=== PATIENT | female | born 1975 | race Caucasian/White ===

== ENCOUNTER 2019-04-26 07:34 | Emergency (ER) | payer BC ==
[~2019-04-26] VITALS: Ht 170.2 cm; Wt 104.5 kg
[~2019-04-26 07:34] MED LIST: ALBUTEROL0.09 MG/A1 IH; ALDOMET 250MG250 MG PO; AMOXICILLIN 8751 TAB PO; CEFTIN500 MG PO; FLEXERIL 1010 MG/TAB PO; LOPRESSOR 225 MG/TAB PO; LORTAB 5/500 501 TAB PO; MEDROL 4MG DOSPA4 MG PO; NO HOME MEDICATIONS; PERCOCET 325 MG1 TA2 PO; PRENATAL VITAMI1 TA5 PO; PREVACID 30MG30 M1; REGLAN 10MG10 MG/TAB PO; TRAMADOL; ULTRAM50 MG PO; ZOFRAN 4MG T4 MG/TAB PO
[2019-04-26 07:43] VITALS: TEMP 97.6
[2019-04-26] MEDS ORDERED: CEPHALEXIN500 M1 PO (08:09)
[2019-04-26] MEDS ORDERED: DOXYCYCLINE 10100 MG PO (08:09)
[2019-04-26] MEDS ORDERED: DITROPAN XL 5MG5 M1 PO (08:24)
[2019-04-26] MEDS ORDERED: REGLAN 5MG T5 MG/TAB PO (08:25)
[2019-04-26 08:29] LABS: STREP SCREEN NEGATIVE
[2019-04-26 08:30] VITALS: BP 125/78; PULSE 70
== END 2019-04-26 08:32 | disposition home or self-care (01) ==
LOC: COL.ER 07:34
PROVIDERS: Emergency Medicine
DX: L03.221 Cellulitis of neck (principal)

== ENCOUNTER 2020-01-11 20:10 | Emergency (ER) | payer BC ==
[~2020-01-11] VITALS: Ht 167.6 cm; Wt 113.6 kg
[~2020-01-11 20:10] MED LIST changes: +CEPHALEXIN500 M1 PO; +DITROPAN XL 5MG5 M1 PO; +DOXYCYCLINE 10100 MG PO; +REGLAN 5MG T5 MG/TAB PO
[2020-01-11 20:12] VITALS: TEMP 98.3
[2020-01-11 21:25] LABS: HEMATOCRIT 44.8 % (37.0-47.0); HEMOGLOBIN 15.2 g/dl (12.5-16.0); MEAN CELL VOLUME 87 fl (80.0-100.0); MEAN CORPUSCULAR HEMOGLOBIN 29 pg (27.0-31.0); MEAN CORPUSCULAR HGB CONC 34 g/dl (33.0-37.0); MEAN PLATELET VOLUME 9.6 fl (7.4-10.4); PLATELET COUNT 232 K/mm3 (130-400); RED BLOOD COUNT 5.18 M/mm3 (4.10-5.30); REDCELL DISTRIBUTION WIDTH-CV 13.3 % (11.5-14.5)
[2020-01-11 22:03] LABS: BAND 6 % (0-10); EOSINOPHIL 1 % (0-4); LYMPHOCYTE 42 % (20.0-51.0); NEUTROPHILS 41 % (42.0-75.2); PLATELET ESTIMATE NORMAL (NORMAL)
[2020-01-11 22:06] LABS: ALBUMIN 3.9 gm/dL (3.5-5.0); BILIRUBIN,TOTAL 0.8 mg/dL (0.0-1.0); CALCIUM 8.8 mg/dL (8.4-10.2); CREATININE, serum 0.74 (0.52-1.25); POTASSIUM 4.5 mmol/L (3.4-5.0); TOTAL PROTEIN 7.4 gm/dL (6.4-8.2)
[2020-01-11 23:05] LABS: COLLECTION METHOD CLEAN CATCH
[2020-01-11 23:14] LABS: MUCOUS Present /lpf; PH 6 (5-8); SQUAMOUS EPITHELIAL 0-2 /hpf; URINE APPEARANCE Clear; URINE BACTERIA None Seen /hpf; URINE BILIRUBIN Negative (NEGATIVE); URINE BLOOD 1+ (NEGATIVE); URINE COLOR Yellow; URINE GLUCOSE Negative (NEGATIVE); URINE KETONE Negative (NEGATIVE); URINE LEUKOCYTE ESTERASE Negative (NEGATIVE); URINE NITRATE Negative (NEGATIVE); URINE PROTEIN(semi-quant) Negative (NEGATIVE); URINE RBC 0-2 /hpf; URINE UROBILINOGEN Negative (NEGATIVE)
[2020-01-12 00:10] VITALS: BP 132/75; PULSE 82
== END 2020-01-12 00:12 | disposition home or self-care (01) ==
LOC: COL.ER 20:10
PROVIDERS: Family Medicine
DX: R51 Headache (principal); E86.0 Dehydration
CPT/HCPCS: J3010; J7030; J7120

== ENCOUNTER 2020-01-16 13:46 | Emergency (ER) | payer BC ==
[~2020-01-16] VITALS: Ht 167.6 cm; Wt 115.0 kg
[2020-01-16] MEDS ORDERED: NEURONTIN100 MG/CAP PO (14:18)
[2020-01-16] MEDS ORDERED: PERCOCET 325 MG1 TA2 PO (14:18)
[2020-01-16] MEDS ORDERED: AMOXICILLIN 50500 MG PO (14:18)
[2020-01-16] MEDS ORDERED: PREVACID 30MG30 M1 PO (14:19)
[2020-01-16] MEDS ORDERED: ULTRAM 50MG TAB50 MG PO (14:19)
[2020-01-16] MEDS ORDERED: SKELAXIN 800MG800 MG PO (14:19)
[2020-01-16] MEDS ORDERED: MOBIC15 MG PO (14:19)
[2020-01-16] MEDS ORDERED: ZYRTEC 10MG10 MG PO (14:20)
[2020-01-16 15:40] LABS: HEMATOCRIT 46.9 % (37.0-47.0); HEMOGLOBIN 15.6 g/dl (12.5-16.0); MEAN CELL VOLUME 88 fl (80.0-100.0); MEAN CORPUSCULAR HEMOGLOBIN 29 pg (27.0-31.0); MEAN CORPUSCULAR HGB CONC 33 g/dl (33.0-37.0); MEAN PLATELET VOLUME 9.4 fl (7.4-10.4); PLATELET COUNT 190 K/mm3 (130-400); RED BLOOD COUNT 5.35 M/mm3 (4.10-5.30); REDCELL DISTRIBUTION WIDTH-CV 13.2 % (11.5-14.5)
[2020-01-16 15:52] LABS: ALBUMIN 3.9 gm/dL (3.5-5.0); BILIRUBIN,TOTAL 1.1 mg/dL (0.0-1.0); C-REACTIVE PROTEIN 3.5 mg/dL (0.0-0.9); CALCIUM 8.6 mg/dL (8.4-10.2); CREATININE, serum 0.86 (0.52-1.25); POTASSIUM 3.9 mmol/L (3.4-5.0); TOTAL PROTEIN 7.7 gm/dL (6.4-8.2)
[2020-01-16 16:17] LABS: LYMPHOCYTE 35 % (20.0-51.0); METAMYELOCYTE 1 % (0-0); NEUTROPHILS 59 % (42.0-75.2)
[2020-01-16 16:19] LABS: PLATELET ESTIMATE NORMAL (NORMAL)
[2020-01-16 16:30] LABS: MONOSCREEN NEGATIVE
[2020-01-16 16:33] LABS: COLLECTION METHOD CLEAN CATCH
[2020-01-16 16:45] LABS: MUCOUS Present /lpf; PH 5 (5-8); SQUAMOUS EPITHELIAL 0-2 /hpf; URINE APPEARANCE Hazy; URINE BACTERIA Rare /hpf; URINE BILIRUBIN Negative (NEGATIVE); URINE BLOOD 1+ (NEGATIVE); URINE COLOR Amber; URINE GLUCOSE Negative (NEGATIVE); URINE KETONE 1+ (NEGATIVE); URINE LEUKOCYTE ESTERASE Negative (NEGATIVE); URINE NITRATE Negative (NEGATIVE); URINE PROTEIN(semi-quant) 1+ (NEGATIVE)
[2020-01-16 18:03] LABS: GLUCOSE,CSF 50 mg/dL (40-70); TOTAL PROTEIN,CSF 49 mg/dL (15-45)
[2020-01-16 18:36] LABS: CSF APPEARANCE CLEAR; CSF COLOR COLORLESS; CSF RBC 91 /mm3 (0-0)
[2020-01-16 18:40] LABS: CSF APPEARANCE CLEAR; CSF COLOR COLORLESS; CSF RBC 1 /mm3 (0-0)
[2020-01-16 19:01] LABS: CSF MONONUCLEAR 0 % (70-100); CSF POLYMORPHONUCLEAR 0 % (0-6)
[2020-01-16] MEDS ORDERED: FIORICET 325 MG1 TA1 PO ×2 (19:23→19:36)
[2020-01-16] MEDS ORDERED: PHENERGAN 25 TA25 MG PO (19:23)
[2020-01-16 19:32] LABS: CSF MONONUCLEAR 75 % (70-100); CSF POLYMORPHONUCLEAR 25 % (0-6)
[2020-01-16 19:46] VITALS: BP 138/77; PULSE 88
[2020-01-17 09:05] LABS: PATHOLOGY DIFF REVIEW OK
== END 2020-01-16 19:49 | disposition home or self-care (01) ==
LOC: COL.ER 13:46
PROVIDERS: Emergency Medicine
DX: B34.9 Viral infection, unspecified (principal); M51.35 Other intervertebral disc degeneration, thoracolumbar region; Z90.49 Acquired absence of other specified parts of digestive tract; Z90.710 Acquired absence of both cervix and uterus; Z79.899 Other long term (current) drug therapy
CPT/HCPCS: J0780; J1170; J1885; J2060; J7030

== ENCOUNTER 2020-02-01 04:26 | Inpatient (IN) | payer BC ==
[~2020-02-01] VITALS: Ht 167.6 cm; Wt 120.9 kg
[~2020-02-01 04:26] MED LIST changes: +AMOXICILLIN 50500 MG PO; +FIORICET 325 MG1 TA1 PO; +MOBIC15 MG PO; +NEURONTIN100 MG/CAP PO; +PHENERGAN 25 TA25 MG PO; +PREVACID 30MG30 M1 PO; +SKELAXIN 800MG800 MG PO; +ULTRAM 50MG TAB50 MG PO; +ZYRTEC 10MG10 MG PO
[2020-02-01 05:32] LABS: HEMATOCRIT 41.8 % (37.0-47.0); HEMOGLOBIN 13.6 g/dl (12.5-16.0); MEAN CELL VOLUME 89 fl (80.0-100.0); MEAN CORPUSCULAR HEMOGLOBIN 29 pg (27.0-31.0); MEAN CORPUSCULAR HGB CONC 33 g/dl (33.0-37.0); PLATELET COUNT 242 K/mm3 (130-400); RED BLOOD COUNT 4.69 M/mm3 (4.10-5.30); REDCELL DISTRIBUTION WIDTH-CV 15.1 % (11.5-14.5)
[2020-02-01 05:35] LABS: INR 1.1 (0.8-3.0); PROTHROMBIN TIME 12.4 SECONDS (9.7-12.8)
[2020-02-01 05:42] LABS: ALBUMIN 3.4 gm/dL (3.5-5.0); BILIRUBIN,TOTAL 0.6 mg/dL (0.0-1.0); CALCIUM 8.3 mg/dL (8.4-10.2); CREATININE, serum 0.81 (0.52-1.25); POTASSIUM 3.8 mmol/L (3.4-5.0); TOTAL PROTEIN 7.1 gm/dL (6.4-8.2)
[2020-02-01 05:50] LABS: BAND 10 % (0-10); EOSINOPHIL 2 % (0-4); NEUTROPHILS 26 % (42.0-75.2); PLATELET ESTIMATE NORMAL (NORMAL)
[2020-02-01 05:51] LABS: LYMPHOCYTE 59 % (20.0-51.0)
[2020-02-01 05:55] LABS: TROPONIN-I 0.037 ng/mL (0.000-0.035)
[2020-02-01] MEDS ORDERED: LASIX 40MG TABL40 MG PO (06:59)
[2020-02-01 08:37] LABS: PATHOLOGY DIFF REVIEW OK
[2020-02-01 09:33] VITALS: BP 130/8; PULSE 88; TEMP 98.6
[2020-02-01 12:02] VITALS: BP 125/80; PULSE 84; TEMP 98.6
--- NOTE | 2020-02-01 12:24 | NUR ---
Patient has been stable since arriving to the floor. States that she feels better than she did earlier this morning. IV sites are CD&I. Heparin dripped has been paused per protocol to hold for 2 hours hepxa scheduled and ordered to be drawn at 1400. Pt denies chest pain and SOB at this time. Medications were reviewed. Pt ambulated to restroom via standby and did very well, gait is steady, no weakness. No other needs were expressed at this time. Continuing to monior. Call light is in reach.
[2020-02-01 15:41] VITALS: BP 136/79; PULSE 86; TEMP 98.4
--- NOTE | 2020-02-01 19:02 | NUR ---
PATIENT HAS HAD NO CHEST PAIN OR DISCOFORT SINCE ARRIVING TO THE FLOOR. HEPARIN DRIP IS CURRENTLY RUNNING AT 12 MLS/HR. PT STATES SHE IS TIRED SHE DID NOT SLEEP WELL AND HAS BEEN NAPPING COMFORTABLY. NO OTHER NEEDS AT THIS TIME. CALL LIGHT IS IN REACH.
[2020-02-01 19:33] VITALS: BP 137/72; PULSE 84; TEMP 97.8
--- NOTE | 2020-02-01 20:00 | NUR ---
Received report from MT Yu. a/ox4. Denies any pain or discomfort. Heparin gtt infusing at 18ml/hr at this time to LH, intact. INT to RAC intact, flushed, dressing CDI. Tele monitor in place. meds administered. needs met at this time. call light within reach.
[2020-02-01 21:17] LABS: COLLECTION METHOD CLEAN CATCH
[2020-02-01 21:28] LABS: PH 6 (5-8); SQUAMOUS EPITHELIAL 0-2 /hpf; URINE APPEARANCE Clear; URINE BACTERIA Rare /hpf; URINE BILIRUBIN Negative (NEGATIVE); URINE BLOOD 1+ (NEGATIVE); URINE COLOR Yellow; URINE GLUCOSE Negative (NEGATIVE); URINE KETONE Negative (NEGATIVE); URINE LEUKOCYTE ESTERASE Negative (NEGATIVE); URINE NITRATE Negative (NEGATIVE); URINE PROTEIN(semi-quant) Negative (NEGATIVE); URINE RBC 0-2 /hpf; URINE UROBILINOGEN Negative (NEGATIVE)
[2020-02-01 23:16] VITALS: BP 127/65; PULSE 83; TEMP 98.4
[2020-02-02 03:39] VITALS: BP 121/67; PULSE 87; TEMP 98.4
--- NOTE | 2020-02-02 05:21 | NUR ---
Pt made no complaints. Meds given. Call light within reach.
[2020-02-02 06:23] LABS: HEMATOCRIT 37.7 % (37.0-47.0); HEMOGLOBIN 12.4 g/dl (12.5-16.0); MEAN CELL VOLUME 89 fl (80.0-100.0); MEAN CORPUSCULAR HEMOGLOBIN 29 pg (27.0-31.0); MEAN CORPUSCULAR HGB CONC 33 g/dl (33.0-37.0); MEAN PLATELET VOLUME 9.1 fl (7.4-10.4); PLATELET COUNT 234 K/mm3 (130-400); RED BLOOD COUNT 4.26 M/mm3 (4.10-5.30); REDCELL DISTRIBUTION WIDTH-CV 15.1 % (11.5-14.5)
[2020-02-02 06:38] LABS: BILIRUBIN,TOTAL 0.6 mg/dL (0.0-1.0); CALCIUM 7.9 mg/dL (8.4-10.2); CREATININE, serum 0.78 (0.52-1.25); POTASSIUM 3.8 mmol/L (3.4-5.0); TOTAL PROTEIN 6.3 gm/dL (6.4-8.2)
[2020-02-02 06:46] LABS: TROPONIN-I 0.035 ng/mL (0.000-0.035)
--- NOTE | 2020-02-02 07:25 | NUR ---
Report given to MT Kelley and MT Denton.
[2020-02-02 07:27] VITALS: BP 137/83; PULSE 89; TEMP 98.4
[2020-02-02 07:34] LABS: BAND 12 % (0-10); EOSINOPHIL 5 % (0-4); METAMYELOCYTE 1 % (0-0); NEUTROPHILS 26 % (42.0-75.2); PLATELET ESTIMATE DECREASED (NORMAL)
[2020-02-02 07:35] LABS: ANISOCYTOSIS 1+; LYMPHOCYTE 50 % (20.0-51.0)
--- NOTE | 2020-02-02 08:16 | NUR ---
Pt resting in chair upon entering room. Assessment completed and documented. Generalized mild edema noted. Pt states "hands are more swollen than usual." No other significant findings noted. IV to L hand infusing heparin at 15 ml/hr, site intact. IV to R AC flushes easily, site intact. Pt reports pain 5/10 throughout head and neck along with mild nausea. Pt reports concerns about frequent headaches, requests medication to help. Pt also reports concerns with gabapentin dosing. Will follow up with provider on medications and continue to monitor patient. Call light within reach.
[2020-02-02] MEDS ORDERED: ELIQUIS 5MG PO (09:20)
--- NOTE | 2020-02-02 09:57 | NUR ---
GEORGETTE and linoleum tile layer met with the patient to discuss discharge plan. The patient lives in [place] with her , Magdiel (ph#[phone]), and two children. She reports independence with ADLs and does not have any DME. The patient's PCP is Dr. Mayra Coppola and she receives her medications at [facility] ([place]). She reports no difficulties obtaining her meds. The patient does not have advanced directives, but she was interested in obtaining a form for DPOA-HC. GEORGETTE provided. The patient plans to return home with her family upon discharge. No additional needs at this time.
--- NOTE | 2020-02-02 11:24 | NUR ---
DISCHARGE INSTRUCTIONS DISCUSSED WITH PATIENT, ALL QUESTIONS ANSWERED. IV TO R AC AND IV TO L HAND REMOVED. PT WHEELED OUT OF FACILITY TO FAMILY CAR.
--- NOTE | 2020-02-02 11:34 | NUR ---
First visit from the product support representative. No needs right now.
== END 2020-02-02 11:15 | disposition home or self-care (01) | DRG 176 ==
LOC: COL.ER 04:26 → MEDICAL 07:23
PROVIDERS: Emergency Medicine; Physician Assistant; ADMIT Hospitalist
DX: I26.99 Other pulmonary embolism without acute cor pulmonale (principal); R79.89 Other specified abnormal findings of blood chemistry; K76.0 Fatty (change of) liver, not elsewhere classified; R16.1 Splenomegaly, not elsewhere classified; G43.909 Migraine, unspecified, not intractable, without status migrainosus; K21.9 Gastro-esophageal reflux disease without esophagitis; M19.90 Unspecified osteoarthritis, unspecified site; J45.909 Unspecified asthma, uncomplicated; M51.36 Other intervertebral disc degeneration, lumbar region; E66.9 Obesity, unspecified; Z88.1 Allergy status to other antibiotic agents
CPT/HCPCS: 99222-AI; 99239; J1644; Q9967

== ENCOUNTER 2020-08-31 17:01 | Emergency (ER) | payer BC ==
[~2020-08-31] VITALS: Ht 167.6 cm; Wt 122.7 kg
[~2020-08-31 17:01] MED LIST changes: +ELIQUIS 5MG PO; +LASIX 40MG TABL40 MG PO
[2020-08-31 17:08] VITALS: TEMP 98.6
[2020-08-31 17:36] LABS: BASO # 0.1 (0.0-0.2); EOS # 0.3 (0.0-0.7); EOS % 3.2 % (0-4.0); GRAN # 5.4 (1.4-6.5); GRAN % 54.3 % (42.2-75.2); HEMATOCRIT 42.9 % (37.0-47.0); HEMOGLOBIN 14.3 g/dl (12.5-16.0); LYMPH # 3.4 (1.2-3.4); MEAN CELL VOLUME 87 fl (80.0-100.0); MEAN CORPUSCULAR HEMOGLOBIN 29 pg (27.0-31.0); MEAN CORPUSCULAR HGB CONC 33 g/dl (33.0-37.0); MEAN PLATELET VOLUME 9.3 fl (7.4-10.4); MONO # 0.7 (0.1-0.6); MONO % 7.1 % (1.7-9.3); PLATELET COUNT 328 K/mm3 (130-400); RED BLOOD COUNT 4.94 M/mm3 (4.10-5.30); REDCELL DISTRIBUTION WIDTH-CV 13.2 % (11.5-14.5)
[2020-08-31 17:47] LABS: ALANINE AMINOTRANSFERASE 21 U/L (4-34); ALBUMIN 4.1 gm/dL (3.5-5.0); ALKALINE PHOSPHATASE 97 U/L (50-136); ANION GAP 7 mmol/L (7-16); AST,SGOT 30 U/L (15-37); BILIRUBIN,TOTAL 0.4 mg/dL (0.0-1.0); BLOOD UREA NITROGEN 14 mg/dL (7-17); CALCIUM 8.6 mg/dL (8.4-10.2); CARBON DIOXIDE 28 mmol/L (22-30); CHLORIDE 105 mmol/L (98-107); CREATININE, serum 0.67 (0.52-1.25); GLUCOSE 110 mg/dL (74-106); POTASSIUM 4.3 mmol/L (3.4-5.0); SODIUM 140 mmol/L (137-145); TOTAL PROTEIN 7.6 gm/dL (6.4-8.2)
[2020-08-31 18:13] LABS: TROPONIN-I < 0.012 ng/mL (0.000-0.035)
[2020-08-31 20:58] VITALS: BP 150/92; PULSE 94
== END 2020-08-31 21:05 | disposition home or self-care (01) ==
LOC: COL.ER 17:01
PROVIDERS: Nurse Practitioner Primary Care
DX: R07.89 Other chest pain (principal); R51.9 Headache, unspecified; K21.9 Gastro-esophageal reflux disease without esophagitis; I25.2 Old myocardial infarction; Z86.711 Personal history of pulmonary embolism; Z90.49 Acquired absence of other specified parts of digestive tract; Z90.710 Acquired absence of both cervix and uterus; Z86.16 Personal history of COVID-19; Z88.1 Allergy status to other antibiotic agents; Z88.5 Allergy status to narcotic agent; Z88.8 Allergy status to other drugs, medicaments and biological substances; Z79.01 Long term (current) use of anticoagulants
CPT/HCPCS: J2270; J2405; Q9967

== ENCOUNTER → 2020-09-27 | Outpatient (CLI) | payer BC ==
[~2020-09-27] MED LIST changes: +00186-0370-20 IH; +ASPIRIN E.C. 8181 MG PO; +B COMPLEX #11 TA1 PO; +CYMBALTA 60MG60 MG PO; +FLEXERIL5 MG PO; +MASON NATURAL1200 MG PO; +NEURONTIN600 MG/TAB PO; +PLAQUENIL 200M200 MG PO; +PREDNISONE20 MG PO; +PROVENTIL0.09 MG/A1 IH; +SINGULAIR 110 MG/TAB PO; +VITAMIND3 5000 PO
== END ==
LOC: COL.RAD 13:52
DX: M25.551 Pain in right hip (principal)
CPT/HCPCS: J3301; Q9967

== ENCOUNTER 2021-03-01 17:24 | Emergency (ER) | payer OTHER ==
[~2021-03-01] VITALS: Ht 170.2 cm; Wt 125.0 kg
[~2021-03-01 17:24] MED LIST changes: -00186-0370-20 IH; -ASPIRIN E.C. 8181 MG PO; -B COMPLEX #11 TA1 PO; -CYMBALTA 60MG60 MG PO; -FLEXERIL5 MG PO; -MASON NATURAL1200 MG PO; -NEURONTIN600 MG/TAB PO; -PLAQUENIL 200M200 MG PO; -PREDNISONE20 MG PO; -PROVENTIL0.09 MG/A1 IH; -SINGULAIR 110 MG/TAB PO; -VITAMIND3 5000 PO
[2021-03-01] MEDS ORDERED: PREDNISONE20 MG PO (19:27)
[2021-03-01 19:34] VITALS: BP 131/86; PULSE 82; TEMP 98.1
[2021-05-01] MEDS ORDERED: SINGULAIR 110 MG/TAB PO (10:46)
[2021-05-01] MEDS ORDERED: PREVACID 30MG30 M1 PO (10:46)
[2021-05-01] MEDS ORDERED: ASPIRIN E.C. 8181 MG PO (10:46)
[2021-05-01] MEDS ORDERED: ZYRTEC 10MG10 MG PO (10:47)
[2021-05-01] MEDS ORDERED: NEURONTIN600 MG/TAB PO (10:48)
[2021-05-01] MEDS ORDERED: MASON NATURAL1200 MG PO (10:48)
[2021-05-01] MEDS ORDERED: DITROPAN XL 5MG5 M1 PO (10:48)
[2021-05-01] MEDS ORDERED: FLEXERIL5 MG PO (10:49)
[2021-05-01] MEDS ORDERED: B COMPLEX #11 TA1 PO (10:49)
[2021-05-01] MEDS ORDERED: MOBIC15 MG PO (10:50)
[2021-05-01] MEDS ORDERED: CYMBALTA 60MG60 MG PO (10:50)
[2021-05-01] MEDS ORDERED: VITAMIND3 5000 PO (10:51)
[2021-05-01] MEDS ORDERED: PLAQUENIL 200M200 MG PO (10:53)
[2021-05-01] MEDS ORDERED: 00186-0370-20 IH (10:54)
[2021-05-01] MEDS ORDERED: PERCOCET 325 MG1 TA2 PO (10:55)
[2021-05-01] MEDS ORDERED: ULTRAM 50MG TAB50 MG PO (10:56)
[2021-05-01] MEDS ORDERED: FIORICET 325 MG1 TA1 PO (10:56)
[2021-05-01] MEDS ORDERED: PROVENTIL0.09 MG/A1 IH (10:57)
[2021-05-01] MEDS ORDERED: PHENERGAN 25 TA25 MG PO (10:57)
== END 2021-03-01 20:12 | disposition home or self-care (01) ==
LOC: COL.ER 17:24
DX: G89.29 Other chronic pain (principal); M54.5 Low back pain; M25.551 Pain in right hip; I25.2 Old myocardial infarction; Z90.49 Acquired absence of other specified parts of digestive tract; Z90.710 Acquired absence of both cervix and uterus; Z79.01 Long term (current) use of anticoagulants; Z79.891 Long term (current) use of opiate analgesic; Z79.899 Other long term (current) drug therapy
CPT/HCPCS: J1170; J2360; J7512

== ENCOUNTER 2021-05-03 09:43 | Outpatient (CLI) | payer OTHER ==
[2021-05-03] VITALS (7 sets, daily range): BP systolic 140–169; BP diastolic 87–99; PULSE 78–97; TEMP 98.1
[~2021-05-03] VITALS: Ht 170.2 cm; Wt 131.9 kg
[~2021-05-03 09:43] MED LIST changes: +00186-0370-20 IH; +ASPIRIN E.C. 8181 MG PO; +B COMPLEX #11 TA1 PO; +CYMBALTA 60MG60 MG PO; +FLEXERIL5 MG PO; +MASON NATURAL1200 MG PO; +NEURONTIN600 MG/TAB PO; +PLAQUENIL 200M200 MG PO; +PREDNISONE20 MG PO; +PROVENTIL0.09 MG/A1 IH; +SINGULAIR 110 MG/TAB PO; +VITAMIND3 5000 PO
--- NOTE | 2021-05-03 12:33 | NUR ---
Pt ready for departure. I reviewed dc instructions r/t LP with pt and daughter. They denied any concerns at time of departure. I escorted pt to exit via wheelchair.
[2021-05-03 13:30] LABS: CSF APPEARANCE CLEAR; CSF COLOR COLORLESS; CSF RBC 3 /mm3 (0-0)
[2021-05-03 13:35] LABS: GLUCOSE,CSF 61 mg/dL (40-70)
[2021-05-03 13:53] LABS: CSF MONONUCLEAR 100 % (70-100); CSF POLYMORPHONUCLEAR 0 % (0-6)
== END 2021-05-03 12:33 | disposition home or self-care (01) ==
LOC: COL.RAD 09:43
PROVIDERS: Internal Medicine
DX: G44.52 New daily persistent headache (NDPH) (principal)

== ENCOUNTER → 2021-07-22 | Outpatient (CLI) | payer OTHER | LOC: COL.RAD 09:57 | DX: M25.551 Pain in right hip (principal) | CPT/HCPCS: J3301; Q9967 ==

== ENCOUNTER 2022-03-24 18:22 | Emergency (ER) | payer BC ==
[~2022-03-24] VITALS: Ht 170.2 cm; Wt 138.6 kg
[2022-03-24 18:51] VITALS: BP 162/47; TEMP 97.9
[2022-03-24] MEDS ORDERED: XARELTO15 MG PO (22:38)
[2022-03-24 22:59] VITALS: PULSE 76
== END 2022-03-24 23:01 | disposition home or self-care (01) ==
LOC: COL.ER 18:22
DX: I82.402 Acute embolism and thrombosis of unspecified deep veins of left lower extremity (principal); Z86.16 Personal history of COVID-19